=== PATIENT | female | born 1990 | race Two or more races ===

== ENCOUNTER 2020-06-14 16:45 | Emergency (ER) | payer OTHER, SELFPAY ==
[~2020-06-14] VITALS: Ht 154.9 cm; Wt 92.0 kg
[2020-06-14 17:44] LABS: BASOPHILS % (AUTO) 1 % (0-1); EOSINOPHILS % (AUTO) 1 % (1-7); LYMPHOCYTES % (AUTO) 10 % (22-44); MEAN CORPUSCULAR HGB CONC 33.8 g/dL (32.4-35.8); MEAN PLATELET VOLUME 11.6 fL (7.4-10.4); MONOCYTES % (AUTO) 5 % (2-9); NEUTROPHILS % (AUTO) 83 % (42-75); PLATELET COUNT 73 x10^3/uL (130-400); RED BLOOD COUNT 4.37 x10^6/uL (3.82-5.3); RED CELL DISTRIBUTION WIDTH 12.5 % (9.6-15.2)
[2020-06-14 17:45] LABS: MD NO
[2020-06-14 17:55] LABS: ALANINE AMINOTRANSFERASE 25 U/L (12-78); ALBUMIN 2.8 g/dL (3.4-5.0); ANION GAP 5 mmol/L (5-15); CALCIUM 8.4 mg/dL (8.5-10.1); CHLORIDE 107 mmol/L (98-107)
--- NOTE | 2020-06-14 17:55 | NUR ---
PT STATES C/O OF RIGHT UPPER QUADRANT ABD PAIN FOR TWO WEEKS AFTER EATING. PT C/O OF NAUSEA AND DIZZINESS, AND MONGE. DENIES VOMITING AND URINATITING DIFFICULTY. DR. REYES EVALUATED. POSTIONED TO COMFORT, ATTACHED TO MONITOR,VSS. WILL CONTINUE TO MONITOR
[2020-06-14 17:57] LABS: ALKALINE PHOSPHATASE 71 U/L (45-117); BILIRUBIN,TOTAL 0.2 mg/dL (0.2-1.0); TOTAL PROTEIN 7.6 g/dL (6.4-8.2)
[2020-06-14] MEDS ORDERED: MORPHINE SULFATE 4 MG/ML, 1ML IVPush PRN (18:00)
[2020-06-14] MEDS ORDERED: ONDANSETRON 2MG/ML, 2ML IVPush ONE (18:00)
[2020-06-14] MEDS ORDERED: SODIUM CHLORIDE FLUSH 10ML SYR IVF ONE (18:00)
[2020-06-14] MEDS ORDERED: ONDANSETRON 2MG/ML, 2ML ONE (18:14)
[2020-06-14] MEDS ORDERED: MORPHINE SULFATE 4 MG/ML, 1ML ONE (18:14)
[2020-06-14 18:15] LABS: MICROSCOPIC AUTO
[2020-06-14 18:21] LABS: HCG UR SG 1.012 (1.003-1.030)
[2020-06-14] MEDS ORDERED: SODIUM CHLORIDE 0.9% 1,000ML IVBOLUS ONE (18:30)
[2020-06-14] MEDS ORDERED: CEFTRIAXONE PMX 2GM/50ML 50 ML IVPB ONE (18:30)
[2020-06-14] MEDS ORDERED: CEFTRIAXONE PMX 1GM/50ML 50 ML ONE (18:43)
[2020-06-14] MEDS ORDERED: CEFTRIAXONE PMX 2GM/50ML 50 ML ONE (18:54)
--- NOTE | 2020-06-14 19:10 | NUR ---
REPORT GIVEN TO TYRESE GRUBBS RN. AMBER, YULISSA.
[2020-06-14 20:07] VITALS: BP 110/66
--- NOTE | 2020-06-14 20:08 | NUR ---
Patient/Caregiver given discharge instructions and they have confirmed that they understand the instructions. Patient ambulatory with steady gait. Rx reviewed with patient and she states understading. Pt instructed not to drive, and has rider here to drive her home.
== END 2020-06-14 20:10 | disposition home or self-care (01) ==
LOC: ED 20:04
DX: A41.9 Sepsis, unspecified organism (principal); N12 Tubulo-interstitial nephritis, not specified as acute or chronic
CPT/HCPCS: 36415; 76700; 80053; 81001; 81025; 83605; 83690; 85025; 87040; 87086; 93005; 96365; 96375; 99291; J0696; J2270; J2405; J7030